=== PATIENT | female | born 1960 | race Caucasian/White ===

== ENCOUNTER 2017-01-22 11:18 | Inpatient (IN) | payer MEDICARE, OTHER ==
[2017-01-09 13:25] LABS: BASOPHILS 0.3 %; BASOPHILS ABSOLUTE 0.02 10/3/uL (0.0-0.16); EOSINOPHILS 0.8 %; EOSINOPHILS ABSOLUTE 0.06 10/3/uL (0.0-0.53); HEMATOCRIT 42.2 % (36.0-48.0); HEMOGLOBIN 14.8 g/dL (12.0-16.0); IMMATURE GRANULOCYTES 0.3 %; IMMATURE GRANULOCYTES ABSOLUTE 0.02 10/3/uL (0.0-0.11); LYMPHOCYTES 24.9 %; LYMPHOCYTES ABSOLUTE 1.89 10/3/uL (0.67-4.30); MEAN CORPUS HGB CONC 35.1 g/dL (32.0-36.0); MEAN CORPUSCULAR HEMOGLOB 32.3 pg (26.0-34.0); MEAN CORPUSCULAR VOLUME 92.1 fL (80-100); MEAN PLATELET VOLUME 9.8 fL (9.2-13.0); MONOCYTES 6.7 %; MONOCYTES ABSOLUTE 0.51 10/3/uL (0.21-1.20); PLATELET COUNT 238 10/3/uL (150-400); RBC DISTRIBUTION WIDTH 12.8 % (12.0-16.0); RED CELL COUNT 4.58 10/6/uL (4.0-5.6); WHITE BLOOD CELLS 7.6 10/3/uL (4.5-10.5)
[2017-01-09 13:28] LABS: MANUAL DIFF NO %; PROTIME (NOT ORD) 13.5 SEC (12.0-14.5)
[2017-01-09 13:35] LABS: ASCORBIC ACID (UR NOT ORDER) NEG (NEG); BILIRUBIN, URINE NEGATIVE (NEG); KETONE, URINE NEGATIVE (NEG); LEUKOCYTE ESTERASE(NOT OR LARGE (NEG); WBC (NOT ORDERED) (RFLEX) 39 (0-5)
[2017-01-09 13:42] LABS: A/G RATIO 1.5 (0.7-1.9); ALBUMIN 4.4 G/DL (3.5-5.0); ALKALINE PHOSPHATASE 120 U/L (45-117); BUN (BLOOD UREA NITROGEN) 12 MG/DL (6-23); CALCIUM, SERUM 9.1 MG/DL (8.5-10.4); CHLORIDE, SERUM 104 MMOL/L (96-112); CO2 (CARBON DIOXIDE) 28 MMOL/L (24-34); CREATININE 0.77 MG/DL (0.55-1.02); GFR AFRICAN AMERICAN 99 ML/MIN (>=60); GFR NON AFRICAN AMERICAN 86 ML/MIN (>=60); GLUCOSE, SERUM 83 MG/DL (60-99); POTASSIUM, SERUM 3.8 MMOL/L (3.5-5.3); SGOT(AST) 16 U/L (5-40); SGPT(ALT) 20 U/L (5-65); SODIUM, SERUM 139 MMOL/L (135-148); TOTAL BILIRUBIN 1.2 MG/DL (0-1.2); TOTAL PROTEIN 7.4 G/DL (6.0-8.5)
--- NOTE | ~2017-01-22 | OP ---
Record Of Operation [facility] [address] [place]. [address] NAME: KATHLEEN ROBB : 58 STATUS : DIS IN PAT#: [id number] AGE: 56 ADM/REG DATE : 01/22/17 MR#: [id number] REPORT SERV DATE: 01/27/17 DICTATED BY: PATRICE ARENAS DATE: 01/22/17 REPORT STATUS : Draft TRANSCRIBED BY: MODOrlando DATE: 01/22/17 DATE OF PROCEDURE: 01/22/2017 PREOPERATIVE DIAGNOSIS: Severe right hip DJD/DDH. POSTOPERATIVE DIAGNOSIS: Severe right hip DJD/DDH. PROCEDURE: Uncemented total hip arthroplasty, Tri-Lock. SIDE: Right. HOSPITALITY AMBASSADOR: ANESTHESIA: See chart. SIZE: See chart. ESTIMATED BLOOD LOSS: About 100 mL. INDICATIONS FOR SURGERY: PROCEDURE: The patient was taken to the operating room and placed supine on the table without incident. Anesthetic was induced per the anesthesiologist. A Campos catheter was placed by the nurse in the standard sterile technique. The correct side for the procedure was identified by preoperative markings and matched with the consent form. All personnel in the room were in agreement regarding the procedure, patient, and side. The patient was then carefully positioned and carefully padded and prepped and draped in the normal sterile fashion. The patient received prophylactic preoperative antibiotics at the appropriate time. The preoperative x-ray was brought up on the monitor. Again, this was reviewed with the staff in the room. According with the preoperative plan, and angled, an anterolateral incision was made centered over the trochanter extending from proximal posterior to distal anterior. Electrocautery was used to maintain meticulous hemostasis. The IT band was split in line with its fibers. A Charnley retractor was placed over saline moistened laps. A standard anterolateral approach to the hip was carried out dissecting in line with the vastus medialis fibers lifting the inferior 20% of the vastus medialis, proximally the interior 20% of the gluteus medius and gluteus minimus tendons off the anterior capsule. Periosteal elevator was used to elevate soft tissue gently directly off the proximal anterior femoral bone. Appropriate retractors were carefully placed. Complete anterior capsulectomy was performed. The hip was then carefully dislocated with a combination of traction maneuver by the dairy and food laboratory assistant and scooping the ball out of the socket with a Hohmann. A femoral neck osteotomy was marked according to what had been preoperatively planned with a broach as a template. The distance for the femoral neck osteotomy was measured with a ruler. A femoral neck osteotomy was made with an oscillating saw under appropriate retraction. Meticulous hemostasis was again obtained. The leg was then brought up out of the anterior bag and Record Of Operation [facility] [id number] [place]. [address] NAME: KATHLEEN ROBB : 58 STATUS : DIS IN PAT#: [id number] AGE: 56 ADM/REG DATE : 01/22/17 MR#: [id number] REPORT SERV DATE: 01/27/17 DICTATED BY: PATRICE ARENAS DATE: 01/22/17 REPORT STATUS : Draft TRANSCRIBED BY: JEANNE DATE: 01/22/17 positioned with the lower extremity in external rotation and slight flexion. Acetabular retractors were placed carefully palpating to be sure that they were directly on the bone. The acetabular labrum was excised with electrocautery and rongeur. Pulvinar fat was removed with a large curette and rongeur and again meticulous hemostasis was obtained. Sequential reamers were used in the acetabulum to 1 mm. less than the final size which was chosen. This was felt to give excellent interference fit. The acetabular fossa was then copiously irrigated with pulsatile lavage and actual acetabular component was placed and impacted and checked to make sure it was down snug. The overall alignment was checked. The acetabular results technician was then removed. Screws were placed in the standard fashion. A drill, depth gauge and self tapping screw placement taking care not to plunge as the drill holes were carefully placed. A trial liner was then placed and attention directed back to the proximal femur. The leg was placed back into the anterior bag. The proximal femur was prepared using a box chisel following by a T-handled reamer to determine the intramedullary alignment. This was followed by sequential broaches up to the final broach. Once it was seated in the appropriate position, a Calcar reamer was used to plane the proximal femur. Trial reduction was then done with a trial prosthetic ball and neck. A straight edge was used to compare the tip of the trochanter to center of the ball relationship to what had been noted on the preoperative x-ray. Careful reduction was then done of the total hip. Palpation was done to ascertain and compare leg lengths by palpating the nonoperative leg and also by checking soft tissue tension. The stability of the hip was checked in full extension with full external rotation and in full flexion with adduction, flexion and internal rotation. The hip was then redislocated with a bone hook. The femoral trial and femoral broach were removed. The acetabulum was then prepared under appropriate retraction by removing the trial liner. A central hole eliminator was placed and tightened. The shell was irrigated out. The actual insert was placed and impacted and then checked to be sure it was down snug with a joker. The leg was again positioned in the bag. The proximal femur exposed, irrigated and the actual thermal prosthesis was taken from the hospital insurance representative and impacted. Once it was down, the trunnion was cleansed with a wet and dry lap and the prosthetic thermal head was placed and impacted and checked to be sure it was down snug. The acetabulum was irrigated and reduction was obtained. Again, we checked soft tissue tension, leg length and stability as described above. The hip was closed in a layered fashion with a 5 mm. Mersilene tape placed through a single drill hole in the proximal anterior/superior trochanter reattaching the gluteus medius and minimus fibers. The vastus lateralis, gluteus medius, and gluteus minimus were then closed in a sleeve. Drain was placed between the vastus and the IT band exiting distally anteriorly. The IT band was closed. Subcutaneous closure and skin closure were then obtained. A sterile dressing was applied. The patient was carefully positioned into a supine position and then awakened. The patient was then carefully transferred to the stretcher to be returned to the postoperative care unit without incident. COMPLICATION: None. SPECIMENS: Right femoral head. Record Of Operation [address] [place]. [address] NAME: KATHLEEN ROBB INES : 58 STATUS : DIS IN [facility]#: [id number] AGE: 56 ADM/REG DATE : 01/22/17 MR#: [id number] REPORT SERV DATE: 01/27/17 DICTATED BY: PATRICE ARENAS DATE: 01/22/17 REPORT STATUS : Draft TRANSCRIBED BY: MODOrlando DATE: 01/22/17 WTB/MODL Tobin Arenas M.D. / [id number] CC: Tobin Arenas M.D.
--- NOTE | ~2017-01-22 | DS ---
Discharge Summary [facility] [address] [place]. [address] NAME: KATHLEEN ROBB : 58 STATUS : DIS IN PAT#: [id number] AGE: 56 ADM/REG DATE : 01/22/17 MR#: [id number] REPORT SERV DATE: 02/04/17 DICTATED BY: PATRICE ARENAS DATE: 02/03/17 REPORT STATUS : Draft TRANSCRIBED BY: JEANNE DATE: 02/03/17 Data Collection from hospitalization DISCHARGE DIAGNOSES: 1. Severe right hip degenerative joint disease/developmental dysplasia of the hip. 2. Hypertension. 3. Hyperlipidemia. 4. Mental handicap since . CONSULTATIONS: None. PROCEDURES PERFORMED: Uncemented total hip [id number], 01/22/2017. PATHOLOGY: Bone and joint, right femoral head-degenerative changes with osteopenia. 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 DISCHARGE MEDICATIONS: Caltrate Plus D 600 mg daily, Hyzaar 1 tablet every morning, Lopressor 25 mg at bedtime, Zocor 40 mg at bedtime, Ultram 50 mg every 4-6 hours as needed, Coumadin 1 mg daily. CONDITION ON DISCHARGE: Stable. DISPOSITION: The patient was discharged home. She followed by home health care on a regular diet with activities as instructed. She would follow up with me on 03/05/2017 and with RIA Castillo, 02/06/2017. HOSPITAL COURSE: This is a 56-year-old female who has been seen in the clinic for followup of bilateral knee pain. The patient said that physical therapy was causing her a lot of pain. The patient said she was ready to schedule surgery. The patient has severe right hip degenerative joint disease as well as DDH. Treatment options were discussed and it was elected to proceed with surgical intervention. She was admitted to the hospital at this time for further evaluation and treatment. Upon admission, she was taken to the operating room where she underwent the above-mentioned procedure. She tolerated this well. There were no complications. On postop day #1, she was evaluated by Occupational and Physical Therapy. She was doing well. She did complain of right knee pain more than her hip pain. LEONID hose were in place. Blood pressure was controlled. Over the next couple of days, she continued to progress. She had some right knee swelling. Ice was applied to the right knee. Her planning was performed. On 01/25/2017, she was up sitting in a chair. INR level was 2.0. Discharge instructions were given. Due to her improved and stable condition, she was discharged home to be followed by home health care with the above stated instructions. Information collected by: Shirley Abdullahi I submit the above information as my discharge summary. Discharge Summary [address] [place] [address] NAME: KATHLEEN ROBB : 58 STATUS : DIS IN PAT#: [id number] AGE: 56 ADM/REG DATE : 01/22/17 MR#: [id number] REPORT SERV DATE: 02/04/17 DICTATED BY: PATRICE ARENAS DATE: 02/03/17 REPORT STATUS : Draft TRANSCRIBED BY: JEANNE DATE: 02/03/17 TG/JEANNE Tobin Arenas M.D. / [id number] CC: Pinky Rice MD
[~2017-01-22 11:18] MED LIST: CALTRA600D PO; HYZAAR 50/12.51 TAB PO; LOP25 PO; ZOCOR40 PO
[2017-01-23 13:14] LABS: HEMOGLOBIN 12.1 g/dL (12.0-16.0)
[2017-01-23 13:22] LABS: INTERNATIONAL NORMAL RATI 1.4 UNITS (-); PROTIME (NOT ORD) 17.2 SEC (12.0-14.5)
[2017-01-23 13:25] LABS: BUN (BLOOD UREA NITROGEN) 15 MG/DL (6-23); CALCIUM, SERUM 8.6 MG/DL (8.5-10.4); CHLORIDE, SERUM 104 MMOL/L (96-112); CO2 (CARBON DIOXIDE) 27 MMOL/L (24-34); CREATININE 0.92 MG/DL (0.55-1.02); GFR AFRICAN AMERICAN 80 ML/MIN (>=60); GFR NON AFRICAN AMERICAN 69 ML/MIN (>=60); GLUCOSE, SERUM 118 MG/DL (60-99); POTASSIUM, SERUM 4.3 MMOL/L (3.5-5.3); SODIUM, SERUM 139 MMOL/L (135-148)
[2017-01-24 05:23] LABS: HEMOGLOBIN 10.9 g/dL (12.0-16.0)
[2017-01-24 05:31] LABS: HEMATOCRIT 31.1 % (36.0-48.0)
[2017-01-24 05:34] LABS: INTERNATIONAL NORMAL RATI 2.3 UNITS (-)
[2017-01-24 05:39] LABS: PROTIME (NOT ORD) 24.9 SEC (12.0-14.5)
[2017-01-25 08:18] LABS: HEMATOCRIT 32.8 % (36.0-48.0); HEMOGLOBIN 11.5 g/dL (12.0-16.0)
[2017-01-25 08:25] LABS: PROTIME (NOT ORD) 22.2 SEC (12.0-14.5)
[2017-01-25] MEDS ORDERED: ULTRAM50 PO (09:11)
[2017-01-25] MEDS ORDERED: C1 PO (09:12)
[2017-06-06] MEDS ORDERED: COUMADIN3 MG PO (11:04)
[2017-06-06] MEDS ORDERED: NORCO1 TA2 PO (11:05)
== END 2017-01-25 18:59 | disposition home or self-care (01) | DRG 470 ==
LOC: SDC/OF 11:18 → PACU 16:18 → 3JRC 17:36
PROVIDERS: Specialist
PROC: 0SR902A Replacement of Right Hip Joint with Metal on Polyethylene Synthetic Substitute, Uncemented, Open Approach (ICD-10-PCS; principal; 2017-01-22 13:15)
DX: M16.11 Unilateral primary osteoarthritis, right hip (principal); I10 Essential (primary) hypertension; E78.5 Hyperlipidemia, unspecified; M25.561 Pain in right knee; Z82.49 Family history of ischemic heart disease and other diseases of the circulatory system; Z79.899 Other long term (current) drug therapy
CPT/HCPCS: 36415; 71020; 72170; 80048; 80053; 81001; 85014; 85018; 85025; 85610; 86850; 86900; 86901; 87086; 87641; 88304; 88311; 93005; 97110-GP; 97116-GP; 97162-GP; 97166-GO; 97535-GO; A9270-GY; C1713; C1776; G8987-CK-GO; G8988-CJ-GO; J0690; J1170; J1580; J1885; J2250; J2274; J2370; J2405; J2710; J2795; J3010